=== PATIENT | male | born 1980 | race African-American/Black ===

== ENCOUNTER 2021-07-04 14:48 | Emergency (ER) | payer SELFPAY ==
[~2021-07-04] VITALS: Ht 175.3 cm; Wt 77.6 kg
--- NOTE | 2021-07-04 14:58 | NUR ---
PT ELOPED FROM THE EMERGENCY DEPARTMENT
--- NOTE | 2021-07-04 15:00 | NUR ---
PT ELOPED [facility] [employer] PROFESSIONAL GURNEY TO THE STREETS.
--- NOTE | 2021-07-04 15:10 | NUR ---
Poncho art in [facility] - 07/04/21 at [address]I [address]ER AT [facility] FOR EVAL.
--- NOTE | 2021-07-04 15:10 | NUR ---
DMP PA AT BEDSIDE FOR EVAL.
--- NOTE | 2021-07-04 15:14 | NUR ---
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 PLACED ON MONITOR. STABLE VITALS. NO OBVIOUS HEAD INJURY NOTED. AWAITING MD ANAND.
[2021-07-04] MEDS ORDERED: HALOPERIDOL LACTATE INJ 5 MG/ML VIAL ONE (15:23)
[2021-07-04] MEDS ORDERED: HALOPERIDOL LACTATE INJ 5 MG/ML VIAL IM ONE (15:30)
[2021-07-04 15:35] LABS: BASOPHILS # (AUTO) 0.1 K/uL (0.0-0.2); BASOPHILS % (AUTO) 1.2 % (0.0-2.0); EOSINOPHILS % (AUTO) 5.1 % (0.0-6.0); HEMATOCRIT 44 % (39-51); HEMOGLOBIN 14.5 g/dL (13.5-17.5); LYMPHOCYTES # (AUTO) 3.7 K/uL (0.8-4.8); LYMPHOCYTES % (AUTO) 61.4 % (20.0-44.0); MEAN CORPUSCULAR HGB CONC 33 g/dl (31.0-36.0); MEAN CORPUSCULAR VOLUME 92 fL (80-96); MONOCYTES # (AUTO) 0.5 K/uL (0.1-1.30); MONOCYTES % (AUTO) 8.4 % (2.0-12.0); NEUTROPHILS # (AUTO) 1.5 K/uL (1.8-8.9); NEUTROPHILS % (AUTO) 23.9 % (43.0-81.0); PLATELET COUNT (AUTO) 233 K/uL (150-450); RED BLOOD CELL COUNT(AUTO) 4.78 MIL/uL (4.5-6.0); WHITE BLOOD COUNT (AUTO) 6.1 K/uL (4.3-11.0)
[2021-07-04 15:47] LABS: BILIRUBIN,DIRECT 0.1 mg/dL (0.0-0.2); BILIRUBIN,TOTAL 0.2 mg/dL (0.2-1.0); CALCIUM, SERUM 8.3 mg/dL (8.5-10.1); CREATININE 1.1 mg/dL (0.6-1.3); POTASSIUM 4.1 mmol/L (3.5-5.1)
[2021-07-04 16:16] LABS: BILIRUBIN,URINE Negative (NEGATIVE); COLOR,URINE YELLOW (YELLOW); LEUKOCYTE ESTERASE ,URINE Negative (NEGATIVE); NITRITE, URINE Negative (NEGATIVE); PH,URINE 5.5 (5.0-8.0); PROTEIN,URINE Negative (NEGATIVE); UGLUCOSE Negative (NEGATIVE); UROBILINOGEN,URINE 0.2 EU/dL (0.2)
[2021-07-04 16:20] LABS: BACTERIA,URINE Rare /HPF (None Seen); SQUAMOUS EPITHELIAL CELL,UR Few /HPF (None Seen); WBC,URINE NONE SEEN /HPF (0-3)
--- NOTE | 2021-07-04 16:39 | NUR ---
PT CALM, SLEEPING EASILY AROUSABLE. ON MONITOR W. STABLE VITALS. WILL CONTINUE TO MONITOR.
--- NOTE | 2021-07-04 17:47 | NUR ---
COVID SWAB DONE AND SENT TO THE LAB
--- NOTE | 2021-07-04 18:58 | NUR ---
RESTING IN BED. EASILY AROUSABLE. ON MONITOR W. STABLE VITALS. WILL CONTINUE TO MONITOR.
--- NOTE | 2021-07-04 19:22 | NUR ---
REPORT GIVEN TO CAREERS ADVISER CARLOS ARAGON FOR [facility].
[2021-07-04 22:56] VITALS: BP 142/86
--- NOTE | 2021-07-04 22:56 | NUR ---
PT [id number]. AWAKE IN BED, VSS.
--- NOTE | 2021-07-04 22:56 | NUR ---
Patient discharged to home in stable condition. Written and verbal after care instructions given. Patient verbalizes understanding of instruction. Pt ambulated out of ED.
== END 2021-07-04 23:02 | disposition home or self-care (01) ==
LOC: ER 16:01
DX: F10.129 Alcohol abuse with intoxication, unspecified (principal); Y90.8 Blood alcohol level of 240 mg/100 ml or more; Z59.0 Homelessness; Z20.822 Contact with and (suspected) exposure to COVID-19; F15.90 Other stimulant use, unspecified, uncomplicated
CPT/HCPCS: 36415; 80048; 80076; 80143; 80307; 80320; 81001; 85025; 87426; 96372; 99283; C9803; J1630; G0480